=== PATIENT | female | born 1940 | race Caucasian/White ===

== ENCOUNTER 2019-04-28 07:46 | Inpatient (IN) | payer MEDICARE, OTHER ==
[~2019-04-28] VITALS: Ht 147.3 cm; Wt 32.7 kg
[2019-04-28] MEDS ORDERED: MULT-1152 PO (08:13)
[2019-04-28] MEDS ORDERED: MEMA10TA PO (08:13)
[2019-04-28] MEDS ORDERED: AMLO10TA7 PO (08:13)
[2019-04-28] MEDS ORDERED: LISI10TA5 PO (08:13)
[2019-04-28] MEDS ORDERED: CALC-860 PO (08:13)
[2019-04-28] MEDS ORDERED: ESCI20TA PO (08:13)
[2019-04-28 08:35] LABS: *BILIRUBIN,URIN NEGATIVE (NEGATIVE); *BLOOD, URINE NEGATIVE (NEGATIVE); *CLARITY,URINE SLIGHTLY CLOUDY (CLEAR); *COLOR,URINE YELLOW (YELLOW); *KETONES,URINE TRACE (NEGATIVE); *UROBILINOGEN,URINE 0.2 E.U./dl (NORMAL); LEUKOCYTE ESTERASE ,URINE NEGATIVE (NEGATIVE); NITRITE, URINE NEGATIVE (NEGATIVE); UGLUCOSE NEGATIVE (NEGATIVE)
[2019-04-28 08:35] LABS: BASOPHILS # (AUTO) 0.1 K/uL (0.0-8.0); EOSINOPHILS # (AUTO) 0.1 K/uL (0.0-0.7); EOSINOPHILS % (AUTO) 1.9 % (0.0-7.0); HEMATOCRIT 38.6 % (31.2-41.9); HEMOGLOBIN 13.4 g/dL (10.9-14.3); LYMPHOCYTES # (AUTO) 1.5 K/uL (20.0-40.0); LYMPHOCYTES % (AUTO) 24.3 % (20.5-51.5); MEAN CORPUSCULAR HGB CONC 35 g/dL (32.3-35.6); MEAN CORPUSCULAR VOLUME 92.3 fL (75.5-95.3); MONOCYTES # (AUTO) 0.5 K/uL (2.0-10.0); MONOCYTES % (AUTO) 7.9 % (0.0-11.0); NEUTROPHILS # (AUTO) 4.1 K/uL (1.8-8.9); NEUTROPHILS % (AUTO) 64.9 % (38.5-71.5); PLATELET COUNT (AUTO) 201 K/uL (179-408); RED BLOOD CELL COUNT(AUTO) 4.18 MIL/uL (3.63-4.92); WHITE BLOOD COUNT (AUTO) 6.3 K/uL (3.8-11.8)
[2019-04-28 08:41] LABS: CARBON DIOXIDE 29 mmol/L (21-32); CHLORIDE 101 mmol/L (98-107); GLUCOSE 105 mg/dL (74-106); POTASSIUM 4.3 mmol/L (3.5-5.1); UREA NITROGEN, BLOOD 43 mg/dL (7-18)
[2019-04-28 08:45] LABS: RBC,URINE 0-3 /HPF (0-3)
[2019-04-28 08:45] LABS: ETHANOL < 3 MG/DL (0-0)
[2019-04-28 08:47] LABS: ALANINE AMINOTRANSFERASE 15 U/L (14-59); ALKALINE PHOSPHATASE 55 U/L (50-136); ASPARTATE AMINOTRANSFERASE 28 U/L (15-37); BILIRUBIN,DIRECT 0.1 mg/dL (0.0-0.2); BILIRUBIN,TOTAL 0.5 mg/dL (0.2-1.0); TOTAL PROTEIN, SERUM 7.2 g/dL (6.4-8.2)
[2019-04-28 08:47] LABS: BACTERIA,URINE NONE SEEN /HPF (NONE SEEN); SQUAMOUS EPITHELIAL CELL,UR FEW /HPF (NONE SEEN)
[2019-04-28 08:48] LABS: *AMPHETAMINE, URINE NEGATIVE (NEGATIVE); *BARBITURATE, URINE NEGATIVE (NEGATIVE); *CANNABINOID, URINE NEGATIVE (NEGATIVE); *COCCAINE, URINE NEGATIVE (NEGATIVE); *OPIATE, URINE NEGATIVE (NEGATIVE); *PHENCYCLIDINE SCREEN,URINE NEGATIVE (NEGATIVE)
[2019-04-28 08:48] LABS: ACETAMINOPHEN < 2.0 ug/mL (10-30)
[2019-04-28 08:50] LABS: URIC ACID CRYSTALS,URINE FEW /HPF (NONE SEEN)
[2019-04-28 08:55] LABS: THYROID STIMULATING HORMONE 0.613 mIU/mL (0.358-3.740)
--- NOTE | 2019-04-28 09:01 | NUR ---
Medically cleared by Dr Cervantes, pending psych evaluation@this time
--- NOTE | 2019-04-28 09:53 | NUR ---
Breakfast tray offered, assisted accordingly, no acute change in condition seen.
--- NOTE | 2019-04-28 10:30 | NUR ---
Patient is seen walking slowly in ER hallway, still for psych evaluation still. Patient was redirected back to her room, oriented to name only, still intermittently tearful.
--- NOTE | 2019-04-28 10:46 | NUR ---
Art Capilla is here to evaluate the patient.
[2019-04-28] MEDS ORDERED: MAGNESIUM HYDROXIDE 30 ML LIQUID UDC PO PRN (11:30)
[2019-04-28] MEDS ORDERED: BLOOD SUGAR DIAGNOSTIC 1 EACH STRIP VI ONE (11:30)
[2019-04-28] MEDS ORDERED: MAG HYDROX/AL HYDROX/SIMETH 30 ML LIQUID UDC PO PRN (11:30)
[2019-04-28] MEDS ORDERED: ACETAMINOPHEN 325 MG TABLET PO PRN (11:30)
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
[2019-04-28 11:45] VITALS: BP 114/61
[2019-04-28 16:36] VITALS: BP 141/65
[2019-04-28 20:15] VITALS: BP 126/70
--- NOTE | 2019-04-29 05:46 | NUR ---
GPS: Remain confused and disoriented. kept in sandra chair for safety.patient is forgetful and unsteady gait. slept 4:30 hrs through the night. assisted with adl's. no agitation noted at this time.continue plan of care.
[2019-04-29 08:06] VITALS: BP 120/60
[2019-04-29] MEDS: LORAZEPAM 0.5 MG TABLET PO PRN (08:20)
[2019-04-29] MEDS: BETA CAROTENE/VIT C & E/MIN TABLET PO SCH (08:34)
[2019-04-29] MEDS: CALCIUM CARB/VITAMIN D 600-400 MG TABLET PO SCH (08:35)
[2019-04-29] MEDS: AMLODIPINE 10 MG TABLET PO SCH (08:35)
[2019-04-29] MEDS: LISINOPRIL 10 MG TABLET PO SCH (08:36)
[2019-04-29] MEDS: ESCITALOPRAM OXALATE 10 MG TABLET PO SCH (11:36)
[2019-04-29 16:21] VITALS: BP 110/58
[2019-04-29] MEDS: DIVALPROEX SPRINKLE 125 MG CAP.SPRINK PO SCH (20:01)
[2019-04-29 20:05] VITALS: BP 105/52
--- NOTE | 2019-04-30 05:47 | NUR ---
GPS: Remain confused and disoriented. patient is forgetful and unsteady gait. slept 7 hrs through the night. assisted with adl's. no agitation noted at this time.Resting in bed comfortably. continue plan of care.
[2019-04-30 08:12] VITALS: BP 108/54
[2019-04-30] MEDS: CALCIUM CARB/VITAMIN D 600-400 MG TABLET PO SCH (08:37)
[2019-04-30] MEDS: LISINOPRIL 10 MG TABLET PO SCH (08:38)
[2019-04-30] MEDS: ESCITALOPRAM OXALATE 10 MG TABLET PO SCH (08:38)
[2019-04-30] MEDS: AMLODIPINE 10 MG TABLET PO SCH (08:38)
[2019-04-30] MEDS: BETA CAROTENE/VIT C & E/MIN TABLET PO SCH (08:38)
[2019-04-30] MEDS: LORAZEPAM 0.5 MG TABLET PO PRN (09:37)
[2019-04-30] MEDS ORDERED: INFLUENZA VACCINE 2019-2020 0.5 ML DISP.SYRIN IM ONE (14:00)
[2019-04-30 16:23] VITALS: BP 102/57
[2019-04-30 20:00] VITALS: BP 106/52
[2019-04-30] MEDS: DIVALPROEX SPRINKLE 125 MG CAP.SPRINK PO SCH (20:12)
[2019-04-30] MEDS: TEMAZEPAM 7.5 MG CAPSULE PO PRN (22:29)
[2019-05-01] MEDS: LORAZEPAM 0.5 MG TABLET PO PRN (02:38)
[2019-05-01 08:00] VITALS: BP 116/83
[2019-05-01] MEDS: ESCITALOPRAM OXALATE 10 MG TABLET PO SCH (08:13)
[2019-05-01] MEDS: BETA CAROTENE/VIT C & E/MIN TABLET PO SCH (08:13)
[2019-05-01] MEDS: LISINOPRIL 10 MG TABLET PO SCH (08:13)
[2019-05-01] MEDS: CALCIUM CARB/VITAMIN D 600-400 MG TABLET PO SCH (08:13)
[2019-05-01] MEDS: AMLODIPINE 10 MG TABLET PO SCH (08:14)
--- NOTE | 2019-05-01 10:56 | NUR ---
Social Work Note/Family Contact: antisqueak worker contacted patients Elder, ([phone]) and left a voicemail to call back.
--- NOTE | 2019-05-01 10:56 | NUR ---
Social Work Note/Initial Discharge Plan: Patient currently resides with her Elder Morgan Akanksha [address], [place] [address]; ([phone]). Patient is unable to take of self. SW will work with the pt and the MD regarding appropriate discharge planning.SW will form a safe and proper discharge.
--- NOTE | 2019-05-01 12:02 | NUR ---
Social Work Note/Family Contact: salvage worker contacted patients Elder, ([phone]) and discussed patients treatment plan and discharge plan. Patients expressed upon discharge to home if high school social studies teacher can help with transportation. Patient lives in [place]. Patients Elder shared patients oil field caser who may help with transportation ([phone])
--- NOTE | 2019-05-01 14:52 | NUR ---
GPS: Nursing Notes: Fall At 14:42 hours, patient watching television in the TV room, slide down the sandra chair by self and when she tried to stand up she loss her balance and fell on the left side, V/S: 96/45, 97.7, 91, 18, 96%, 0/10, upon assessment, patient denies any pain, no bruises noted, ambulatory with assistance, MELI Gallagher was notify, no further orders were given, her was notify, patient placed close to nursing station, continue with treatment plan.
[2019-05-01 16:24] VITALS: BP 100/50
[2019-05-01 20:00] VITALS: BP 105/45
[2019-05-01] MEDS: DIVALPROEX SPRINKLE 125 MG CAP.SPRINK PO SCH (20:05)
[2019-05-01] MEDS: TEMAZEPAM 7.5 MG CAPSULE PO PRN (22:36)
[2019-05-02 07:30] VITALS: BP 114/51
[2019-05-02] MEDS: BETA CAROTENE/VIT C & E/MIN TABLET PO SCH (08:11)
[2019-05-02] MEDS: ESCITALOPRAM OXALATE 10 MG TABLET PO SCH (08:11)
[2019-05-02] MEDS: CALCIUM CARB/VITAMIN D 600-400 MG TABLET PO SCH (08:11)
[2019-05-02] MEDS: AMLODIPINE 10 MG TABLET PO SCH (08:11)
[2019-05-02] MEDS: LISINOPRIL 10 MG TABLET PO SCH (08:12)
[2019-05-02 15:02] VITALS: BP 119/55
--- NOTE | 2019-05-02 16:23 | NUR ---
Social Work Note/Family Contact: lime kiln worker helper spoke to patients , Elder ([phone]) and shared that he is unable to transport patient back home and needs help. Patients Elder, ([phone]) that he would want home health services in [place] upon patients discharge.
--- NOTE | 2019-05-02 16:25 | NUR ---
Social Work Note/Discharge Plan Update: social group worker contacted Danilo ([phone]) who works at [employer] and is the patient case manager for patient. Danilo ([phone]), stated that she is able to provide transportation back home upon discharge. Danilo provided Home Health Services to social media strategist: [facility]; ([phone]), [facility]; ([phone]), [facility]; ([phone]). social group worker will follow up and send clinicals to the facilities.
[2019-05-02 19:47] VITALS: BP 112/61
[2019-05-02] MEDS: DIVALPROEX SPRINKLE 125 MG CAP.SPRINK PO SCH (20:06)
[2019-05-02] MEDS: ATORVASTATIN 20 MG TABLET PO SCH (20:06)
[2019-05-02] MEDS: TEMAZEPAM 7.5 MG CAPSULE PO PRN (23:00)
[2019-05-03 07:30] VITALS: BP 136/67
[2019-05-03] MEDS: BETA CAROTENE/VIT C & E/MIN TABLET PO SCH (08:38)
[2019-05-03] MEDS: ESCITALOPRAM OXALATE 10 MG TABLET PO SCH (08:38)
[2019-05-03] MEDS: LISINOPRIL 10 MG TABLET PO SCH (08:38)
[2019-05-03] MEDS: CALCIUM CARB/VITAMIN D 600-400 MG TABLET PO SCH (08:38)
--- NOTE | 2019-05-03 09:48 | NUR ---
Social Work Note/Discharge Plan Update: terrazzo worker helper contacted [facility];([phone]) and faxed progress notes and psychiatric H & P and order for home health to admin coordinator Erika,([phone]) for coordination of care. Lonior shared that upon discharge the home health will coordinate care for patient. terrazzo worker helper will follow-up with Lonior upon patients discharge.
--- NOTE | 2019-05-03 09:55 | NUR ---
Social Work Note/Family Contact: child and family services worker contacted patients Elder, ([phone]) and left a voicemail in regards to patients treatment plan and discharge plan. child and family services worker will follow-up regularly.
--- NOTE | 2019-05-03 16:28 | NUR ---
Social Work Note/Discharge Plan Update: forestry worker spoke with [facility];([phone]) after having faxed progress notes and spoke lupe James who stated that they wioll not accept this patient due to her psychiatric issues. Erika referred this program writer to [facility] ([phone]) and spoke with Vy, who stated they also will not take this patient due to not having any psych nurses to visit the patient. forestry worker explained that the patient only needs medication management and they stated that they will not accept the patient due to her psych diagnosis.
[2019-05-03 16:40] VITALS: BP 98/57
[2019-05-03] MEDS: DIVALPROEX SPRINKLE 125 MG CAP.SPRINK PO SCH (20:05)
[2019-05-03] MEDS: ATORVASTATIN 20 MG TABLET PO SCH (20:05)
[2019-05-03 20:39] VITALS: BP 106/60
[2019-05-03] MEDS: TEMAZEPAM 7.5 MG CAPSULE PO PRN (21:48)
--- NOTE | 2019-05-04 05:47 | NUR ---
Patient slept 6 hours last night and is still asleep. No attempts to get out of bed. Bed alarm on for safety, continuing to monitor. Patient remains confused.
[2019-05-04 07:30] VITALS: BP 107/66
--- NOTE | 2019-05-04 08:14 | NUR ---
Social Work Note/Discharge Planning Update: paper and pulp mill worker contactd [facility] and spoke to Michoacano ([phone]) and faxed ([phone]) patients clinicals. Per Michoacano, he stated upon discharge they are able to provided services for the patient.
--- NOTE | 2019-05-04 08:41 | NUR ---
Social Work Note/Discharge Plan: plant production worker arranged patient Home Health services from [facility] and spoke to Michoacano ([phone]) who approved and will provided services upon discharge. plant production worker contacted patients primary doctor and spoke to John from [place] [address]; ([phone]) with Dr. Menendez on June 02, 2019 at 9:30AM. plant production worker also [place] [address]; ([phone]), ([phone]) and arranged psychiatrist appointment with Dr. Casa Orellana on May 17, 2019 at 10:00AM. plant production worker [place] [address]; ([phone]).
[2019-05-04] MEDS: BETA CAROTENE/VIT C & E/MIN TABLET PO SCH (08:54)
[2019-05-04] MEDS: ESCITALOPRAM OXALATE 10 MG TABLET PO SCH (08:54)
[2019-05-04] MEDS: LISINOPRIL 10 MG TABLET PO SCH (08:54)
[2019-05-04] MEDS: CALCIUM CARB/VITAMIN D 600-400 MG TABLET PO SCH (08:54)
--- NOTE | 2019-05-04 10:03 | NUR ---
Tape Rules Printing Machine Operator Note/Discharge Planning Update: Upon discharge criminal justice social worker will provide resources to patients Elder ([phone]) resources for out of pocket services for caregiving. food service worker hospital contacted [facility] [place] [address] [place] [address] and spoke to Lawanda ([phone]) expressed that they provide caregiving services for out of pocket.
--- NOTE | 2019-05-04 13:20 | NUR ---
Gps/Labor Relations Consultant- Constantly griding teeth, discouraged from doing so. Needed assist with meals, encouraged and prompted. Remains up on her sandra-chair for safety.
--- NOTE | 2019-05-04 15:37 | NUR ---
Gps/Development And Housing Director- Patient was able to talked to her . Elder claimed patient had been grinding her teeth for the last few month. Noted patient stopped grinding teeth when being distracted .Noted patient was able to carry on a conversation,, pt. yuli CAROLINA
[2019-05-04 16:00] VITALS: BP 92/51
--- NOTE | 2019-05-04 16:27 | NUR ---
Social Work Note/Family Contact: livestock farmworker contacted patients Elder, ([phone]) and left a voicemail. livestock farmworker will follow up.
[2019-05-04 20:01] VITALS: BP 109/50
[2019-05-04] MEDS: ATORVASTATIN 20 MG TABLET PO SCH (20:09)
[2019-05-04] MEDS: DIVALPROEX SPRINKLE 125 MG CAP.SPRINK PO SCH (20:09)
[2019-05-04] MEDS: TEMAZEPAM 7.5 MG CAPSULE PO PRN (21:12)
[2019-05-05] MEDS: LORAZEPAM 0.5 MG TABLET PO PRN (03:57)
--- NOTE | 2019-05-05 05:00 | NUR ---
Patient noted to be anxious and clicking her jaw. Ativan 0.5 given. Resting now. Patient slept 5 hours. Will continue to monitor.
[2019-05-05 07:30] VITALS: BP 104/49
[2019-05-05] MEDS: CALCIUM CARB/VITAMIN D 600-400 MG TABLET PO SCH (08:27)
[2019-05-05] MEDS: ESCITALOPRAM OXALATE 10 MG TABLET PO SCH (08:29)
[2019-05-05] MEDS: LISINOPRIL 10 MG TABLET PO SCH (08:29)
[2019-05-05] MEDS: BETA CAROTENE/VIT C & E/MIN TABLET PO SCH (08:29)
--- NOTE | 2019-05-05 11:21 | NUR ---
Social Work Note/Family Contact: motion picture set up worker contacted patients Elder, ([phone]) and left a voicemail explaining patients discharge plan upon discharge. motion picture set up worker will follow up regularly.
--- NOTE | 2019-05-05 11:30 | NUR ---
Social Work Note/Individual Therapy Note: color worker met with patient and provided brief supportive counseling. Patient does not engage in conversation with global technical writer.
--- NOTE | 2019-05-05 11:47 | NUR ---
Social Work Note/Family Contact: child and family services worker spoke to patients Elder, ([phone]) and explained patients discharge plan upon discharge. child and family services worker provided information in regards to patients primary doctor appointment, psychiatrist appointment, Home Health Services; ([phone]), [facility] process, and Caregiving services [facility]; ([phone]) for out of pocket. Patients was thankful for the help and expressed that he will be getting out of pocket caregiving services for patient. Patients Elder expressed that he spoke to patient yesterday and was concerned due to her grinding her teeth. Elder expressed that she has been doing this prior admissions. child and family services worker provided supportive listening and provided resources. child and family services worker will follow up with patients on a regular basis.
[2019-05-05 16:00] VITALS: BP 125/60
[2019-05-05 20:54] VITALS: BP 123/60
[2019-05-05] MEDS: DIVALPROEX SPRINKLE 125 MG CAP.SPRINK PO SCH (21:05)
[2019-05-05] MEDS: ATORVASTATIN 20 MG TABLET PO SCH (21:05)
[2019-05-05] MEDS: TEMAZEPAM 7.5 MG CAPSULE PO PRN (21:06)
--- NOTE | 2019-05-06 06:49 | NUR ---
Patient slept 6.30 hours last night. Still very confused. Up early this am for a shower then in Sandra chair near the nurses station for safety. No issues or distress during the night.
[2019-05-06 07:30] VITALS: BP_SYST 128; BP_SYST 72; BP_DIAS 46; BP_DIAS 59
[2019-05-06] MEDS: ESCITALOPRAM OXALATE 10 MG TABLET PO SCH (08:22)
[2019-05-06] MEDS: LISINOPRIL 10 MG TABLET PO SCH (08:22)
[2019-05-06] MEDS: CALCIUM CARB/VITAMIN D 600-400 MG TABLET PO SCH (08:22)
[2019-05-06] MEDS: BETA CAROTENE/VIT C & E/MIN TABLET PO SCH (08:22)
--- NOTE | 2019-05-06 18:00 | NUR ---
Gps/Knot Tier- Not iinitiating to feed self. Assisted with all meals, fluids offered encouraged, likes ensure. Continue to monitor closely for safety, kept getting up from her sandra-chair. Toileted at a regular intervals.
[2019-05-06 18:35] VITALS: BP 91/51
[2019-05-06] MEDS: ATORVASTATIN 20 MG TABLET PO SCH (20:15)
[2019-05-06] MEDS: DIVALPROEX SPRINKLE 125 MG CAP.SPRINK PO SCH (20:15)
[2019-05-06 20:53] VITALS: BP 94/53
[2019-05-07] MEDS: TEMAZEPAM 7.5 MG CAPSULE PO PRN ×2 (02:05→21:46)
--- NOTE | 2019-05-07 06:15 | NUR ---
Patient's blood pressure was initially low at the start of the shift, medications that could lower blood pressure held. At 0200, patient's blood pressure a little bit better, sleeping medication given and patient slept for 4 hours afterwards. Attended all needs. Ensured safety and comfort. Will endorse accordingly.
[2019-05-07 07:30] VITALS: BP 97/35
--- NOTE | 2019-05-07 07:57 | NUR ---
Gps/Refinery Operator Alkylation- Noted low b/p 85/28 left arm HR 78 , 02 sat 98% . Fluids offered/juices, lower ext elevated. B/P rechecked after few minutes 99/47 left arm . No signs of any resp. distress, kept infront of the Nurses station , monitor safety and v/s.
[2019-05-07] MEDS: LISINOPRIL 10 MG TABLET PO SCH (08:01)
[2019-05-07] MEDS: ESCITALOPRAM OXALATE 10 MG TABLET PO SCH (09:00)
[2019-05-07] MEDS: CALCIUM CARB/VITAMIN D 600-400 MG TABLET PO SCH (09:12)
[2019-05-07] MEDS: BETA CAROTENE/VIT C & E/MIN TABLET PO SCH (09:12)
--- NOTE | 2019-05-07 11:20 | NUR ---
Gps/Clinical Applications Manager- Fluids offered and encouraged , b/p 86/39 HR 83 02 sat 95%, lower ext. evelated
[2019-05-07 13:51] LABS: BASOPHILS # (AUTO) 0.1 K/uL (0.0-8.0); EOSINOPHILS # (AUTO) 0.2 K/uL (0.0-0.7); EOSINOPHILS % (AUTO) 2.7 % (0.0-7.0); HEMATOCRIT 32.1 % (31.2-41.9); HEMOGLOBIN 11.1 g/dL (10.9-14.3); LYMPHOCYTES % (AUTO) 23.5 % (20.5-51.5); MEAN CORPUSCULAR HEMOGLOBIN 31.8 uug (24.7-32.8); MEAN CORPUSCULAR HGB CONC 35 g/dL (32.3-35.6); MEAN CORPUSCULAR VOLUME 92.3 fL (75.5-95.3); MONOCYTES % (AUTO) 11.9 % (0.0-11.0); NEUTROPHILS # (AUTO) 5.3 K/uL (1.8-8.9); NEUTROPHILS % (AUTO) 60.9 % (38.5-71.5); PLATELET COUNT (AUTO) 169 K/uL (179-408); RED BLOOD CELL COUNT(AUTO) 3.47 MIL/uL (3.63-4.92); WHITE BLOOD COUNT (AUTO) 8.7 K/uL (3.8-11.8)
[2019-05-07 13:55] LABS: CREATININE 1.2 mg/dL (0.6-1.3); POTASSIUM 4.1 mmol/L (3.5-5.1)
--- NOTE | 2019-05-07 15:31 | NUR ---
Gps/Valve Steamer- Patient was able to her this pm.,claimed patient a little more appropriate this afternoon. Patient was interacting with her peer, was able to tell staff her age. Fluids continue to offer .b/p 92/49 HR 82
[2019-05-07] MEDS ORDERED: IV NS 1000 ML 1,000 ML IV ONE (16:00)
[2019-05-07 16:01] VITALS: BP 92/49
--- NOTE | 2019-05-07 16:26 | NUR ---
Gps/Lacquer Spray Booth Operator -Insyte # 22 was inserted to left wrist , IV fluids of NS started as ordered , patient was informed. IVF infusing well x 1 bag only at this time bolus .
[2019-05-07] MEDS: DIVALPROEX SPRINKLE 125 MG CAP.SPRINK PO SCH (21:00)
[2019-05-07] MEDS: ATORVASTATIN 20 MG TABLET PO SCH (21:00)
[2019-05-08] MEDS: LORAZEPAM 0.5 MG TABLET PO PRN (04:33)
--- NOTE | 2019-05-08 06:15 | NUR ---
PT DIDN'T SLEEP. PT IN NO ACUTE DISTRESS. PT TRYING TO GET OUT OF THE BED AND GERICHAIR. PT NEEDS REORIENTATION AND REDIRECTION. PRN MEDICATIONS GIVEN.PT TOLERATED IT WELL. IV ACCESS TAKEN OFF. SAFETY AND COMFORT PROVIDED. WILL ENDORSE TO INCOMING NURSE FOR CONTINUITY OF CARE.
[2019-05-08 07:30] VITALS: BP 140/76
[2019-05-08] MEDS: CALCIUM CARB/VITAMIN D 600-400 MG TABLET PO SCH (09:15)
[2019-05-08] MEDS: BETA CAROTENE/VIT C & E/MIN TABLET PO SCH (09:15)
[2019-05-08] MEDS: ESCITALOPRAM OXALATE 10 MG TABLET PO SCH (09:15)
[2019-05-08 10:13] LABS: CREATININE 0.9 mg/dL (0.6-1.3)
--- NOTE | 2019-05-08 15:12 | NUR ---
Social Work Note/Discharge Planning Update: munitions factory worker contacted Peg from [facility] case [facility]; ([phone]) who expressed that they will provided transportation for patient tomorrow. munitions factory worker contacted John from [facility]; ([phone]) who expressed that they will have a nurse who will visit the patient on wednesday or .
--- NOTE | 2019-05-08 15:21 | NUR ---
Social Work Note/Family Contact: breaker table worker spoke to patients , Elder ([phone]) and stated that patient will be discharged tomorrow. Patients agreed.
[2019-05-08 15:38] VITALS: BP 90/51
[2019-05-08 20:00] VITALS: BP 93/45
[2019-05-08] MEDS: DIVALPROEX SPRINKLE 125 MG CAP.SPRINK PO SCH (20:26)
[2019-05-08] MEDS: ATORVASTATIN 20 MG TABLET PO SCH (20:26)
[2019-05-08] MEDS: TEMAZEPAM 7.5 MG CAPSULE PO PRN (21:56)
[2019-05-08 22:25] LABS: *BILIRUBIN,URIN NEGATIVE (NEGATIVE); *BLOOD, URINE NEGATIVE (NEGATIVE); *COLOR,URINE YELLOW (YELLOW); *KETONES,URINE NEGATIVE (NEGATIVE); *UROBILINOGEN,URINE 0.2 E.U./dl (NORMAL); LEUKOCYTE ESTERASE ,URINE 2+ (NEGATIVE); NITRITE, URINE NEGATIVE (NEGATIVE); UGLUCOSE NEGATIVE (NEGATIVE)
[2019-05-08 22:30] LABS: *CLARITY,URINE HAZY (CLEAR)
[2019-05-08 22:42] LABS: BACTERIA,URINE MODERATE /HPF (NONE SEEN); RBC,URINE 0-3 /HPF (0-3); SQUAMOUS EPITHELIAL CELL,UR MODERATE /HPF (NONE SEEN); WBC,URINE 20-50 /HPF (0-3)
[2019-05-09 07:30] VITALS: BP 106/48
[2019-05-09] MEDS: LORAZEPAM 0.5 MG TABLET PO PRN (08:03)
[2019-05-09] MEDS: ESCITALOPRAM OXALATE 10 MG TABLET PO SCH (08:03)
[2019-05-09] MEDS: CALCIUM CARB/VITAMIN D 600-400 MG TABLET PO SCH (08:05)
[2019-05-09] MEDS: BETA CAROTENE/VIT C & E/MIN TABLET PO SCH (08:05)
--- NOTE | 2019-05-09 08:23 | NUR ---
Social Work Note/Family Contact: asbestos abatement worker contacted patients Elder, ([phone]) and expressed that if social worker school can ask Dr. Frank upon discharge if he can receive a letter from the doctor stating that patient is unable to sign due to patients cognitive impairment. He epressed that he needs patient to sign for her financial checks at home. asbestos abatement worker will follow up with Dr. Frank.
--- NOTE | 2019-05-09 08:29 | NUR ---
Social Work Note: Per patients Elder ([phone]) request, social insurance administrator contacted Dr. Frank and expressed if he is able to provided a letter that patient is unable to sign due to cognitive impairment. Patients Elder expressed that he needs patient to sign for her financial checks at home. Dr. Frank stated that patients Elder should see a legal entity controller for probate conservatorship petition.
--- NOTE | 2019-05-09 08:42 | NUR ---
Social Work Note/Firearms Report: Patch Sander completed and submitted a [employer] firearms report for 5250 grave disability certification. A copy of report has been placed in patient chart.
--- NOTE | 2019-05-09 08:48 | NUR ---
Social Work Note/Discharge: Patient will be discharged back home [address], [place] [address]; ([phone]). Shana from [facility] ([phone]) arranged transportation and patient will be picked up by transportation, ([phone]). Patient will be picked up at 4PM from [facility] medical transportation. Spoke with Elder, ([phone]) is aware and agreeable with discharge plans. Patient is alert and oriented x1-2 denies SI/HI, and is aware and agreeable with discharge plans. Patient follow-up [address], [address]; ([phone]) with Dr. Menendez on June 02, 2019 at 9:30AM. Patient will follow up with psychiatrist Dr. Casa Orellana at [address] [address]; ([phone]), ([phone]) on May 17, 2019 at 10:00AM. Patient will receive home Health Services from [facility] admin coordinator John ([phone]) reported a nurse will visit patient on 05/10-05/11. Patient was provided with outpatient mental health resources to [facility] , [facility] ([phone]), [facility] ([phone]), [facility] ([phone]) and the National Suicide Prevention Lifeline . Patient was also provided with home health referrals, including: [facility], [facility], and [facility]. Patient presents euthymic mood and congruent affect.
--- NOTE | 2019-05-09 09:57 | NUR ---
Social Work Note/Family Contact: fabric worker fitter contacted patients Elder, ([phone]) and addressed that Dr. Frank expressed if he is unable provided a letter that patient is unable to sign due to cognitive impairment. fabric worker fitter shared that Dr. Frank stated that patients Elder should see a legal activity adjudicator for probate conservatorship petition. Patients Elder was informed.
--- NOTE | 2019-05-09 11:41 | NUR ---
GPS : Discharge notes: patient AOx1, compliant with medication, denies any pain, Denies SI and Hi, patient was DC to home, with her home meds instruction , patient was transfer via ambulance , MD aware,
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
== END 2019-05-09 11:30 | disposition home or self-care (01) | DRG 885 ==
LOC: EDBD 07:46 → ER 07:46 → GPS 11:06
PROVIDERS: ADMIT Psychiatry & Neurology Psychiatry; ATTEND Registered Nurse
DX: F39 Unspecified mood [affective] disorder (principal); F03.91 Unspecified dementia, unspecified severity, with behavioral disturbance; E86.0 Dehydration; E78.5 Hyperlipidemia, unspecified; F41.9 Anxiety disorder, unspecified; I10 Essential (primary) hypertension; H91.90 Unspecified hearing loss, unspecified ear; R79.89 Other specified abnormal findings of blood chemistry; R00.0 Tachycardia, unspecified
CPT/HCPCS: 36415; 71045; 80307; 84443; 85025; 87086; 90686; 93005; A4663; G0480; G0480-TC; J7030